=== PATIENT | female | born 1955 | race Caucasian/White ===

== ENCOUNTER 2021-02-21 08:36 | Day surgery (SDC) | payer OTHER ==
[2021-02-21] MEDS ORDERED: LIDOCAINE HCL/PF 2% SDV 5ML VIAL ONE (10:03)
[2021-02-21] MEDS ORDERED: PROPOFOL 20 ML ONE ×2 (10:03)
[2021-02-21 11:43] VITALS: TEMP 97.5
[2021-02-21 11:52] VITALS: BP 118/52; PULSE 74
== END 2021-02-21 11:45 | disposition home or self-care (01) ==
LOC: FASU-ENDO 08:36
PROVIDERS: ATTEND Internal Medicine Gastroenterology
PROC: 0DJD8ZZ Inspection of Lower Intestinal Tract, Via Natural or Artificial Opening Endoscopic (ICD-10-PCS; principal; 2021-02-21 10:36)
DX: Z12.11 Encounter for screening for malignant neoplasm of colon (principal)